=== PATIENT | female | born 1990 | race Hispanic/Latino ===

== ENCOUNTER 2023-07-06 14:59 | Emergency (ER) | payer OTHER ==
[~2023-07-06] VITALS: Ht 162.6 cm; Wt 110.8 kg
[2023-07-06] MEDS ORDERED: TETRACAINE HCL 0.5% 4 ML BTL OU ONE (15:45)
[2023-07-06 16:43] VITALS: BP 129/94
== END 2023-07-06 16:41 | disposition home or self-care (01) ==
LOC: ED 14:59
DX: H10.13 Acute atopic conjunctivitis, bilateral (principal); H54.7 Unspecified visual loss
CPT/HCPCS: 99283